=== PATIENT | male | born 1995 | race Caucasian/White ===

== ENCOUNTER 2020-11-25 11:02 | Emergency (ER) | payer OTHER ==
[~2020-11-25] VITALS: Ht 182.9 cm; Wt 102.1 kg
[~2020-11-25 11:02] MED LIST: ZYRTEC10 M3 PO
[2020-11-25] MEDS ORDERED: MIRALAX510 GM PO (15:02)
[2020-11-25] MEDS ORDERED: ANUSOL-HC30 G2 TOP (15:02)
[2020-11-25] MEDS ORDERED: RECTICARE30 GM RECTAL (15:02)
[2020-11-25] MEDS ORDERED: DAFLONEX-XL 11300 MG PO (15:02)
== END 2020-11-25 17:31 | disposition home or self-care (01) ==
LOC: ER 11:02
DX: K64.4 Residual hemorrhoidal skin tags (principal)